=== PATIENT | male | born 1970 | race Caucasian/White ===

== ENCOUNTER 2017-11-12 17:29 | Emergency (ER) | payer MEDICARE, OTHER, SELFPAY ==
[~2017-11-12] VITALS: Ht 167.6 cm; Wt 81.8 kg
[~2017-11-12 17:29] MED LIST: LISI20TA PO
[2017-11-12] MEDS ORDERED: ISOS30TA6 PO (17:45)
[2017-11-12] MEDS ORDERED: FAMO20 PO (17:45)
[2017-11-12] MEDS ORDERED: BUME1TAB17 PO (17:45)
[2017-11-12] MEDS ORDERED: SUCR500T PO (17:45)
[2017-11-12] MEDS ORDERED: TRAM50TA4 PO (17:45)
[2017-11-12] MEDS ORDERED: CINA30 PO (17:45)
[2017-11-12] MEDS ORDERED: FURO80 PO (17:45)
[2017-11-12 19:56] LABS: BASOPHILS % (AUTO) 0.9 % (0.0-2.0); EOSINOPHILS % (AUTO) 3.3 % (1.0-6.0); HEMATOCRIT 23.3 % (41-53); HEMOGLOBIN 7.5 g/dL (13.5-17.5); LYMPHOCYTES # (AUTO) 0.7 K/uL (1.0-4.8); LYMPHOCYTES % (AUTO) 10.3 % (22.0-44.0); MEAN CORPUSCULAR HEMOGLOBIN 27.9 pg (26.0-34.0); MEAN CORPUSCULAR HGB CONC 32.1 G/dL (31.0-37.0); MEAN CORPUSCULAR VOLUME 87 fL (80-100); MONOCYTES # (AUTO) 1.1 K/uL (0.1-1.0); MONOCYTES % (AUTO) 16.5 % (2.0-9.0); NEUTROPHILS # (AUTO) 4.6 K/uL (1.8-7.7); PLATELET COUNT (AUTO) 169 K/uL (150-450); RED BLOOD CELL COUNT(AUTO) 2.68 MIL/uL (4.50-5.90); RED CELL DISTRIBUTION WIDTH 16.6 % (11.5-14.5)
[2017-11-12 20:07] LABS: CALCIUM, TOTAL 8.2 mg/dL (8.8-10.5); CREATININE 7.8 mg/dL (0.60-1.30); POTASSIUM 5.1 mmol/L (3.5-5.1)
[2017-11-12 20:13] LABS: ALBUMIN 2.5 g/dL (3.4-5.0); TOTAL PROTEIN, SERUM 6.4 g/dL (6.4-8.2)
[2017-11-12] MEDS ORDERED: HYDROmorphone 2 MG/ML SYRINGE IVP ONE (20:30)
[2017-11-12 21:24] VITALS: BP 118/83
== END 2017-11-12 21:56 | disposition home or self-care (01) ==
LOC: EMS 17:30
DX: L89.519 Pressure ulcer of right ankle, unspecified stage (principal); F17.210 Nicotine dependence, cigarettes, uncomplicated; I12.0 Hypertensive chronic kidney disease with stage 5 chronic kidney disease or end stage renal disease; N18.6 End stage renal disease; F15.90 Other stimulant use, unspecified, uncomplicated; Z99.2 Dependence on renal dialysis
CPT/HCPCS: 36415; 71045; 80053; 83605; 83690; 83880; 84484; 85025; 87040; 93005; 96374; 99285; J1170

== ENCOUNTER 2017-11-16 18:43 | Emergency (ER) | payer MEDICARE, MEDICAID ==
[~2017-11-16] VITALS: Ht 172.7 cm; Wt 81.8 kg
[~2017-11-16 18:43] MED LIST changes: +BUME1TAB17 PO; +CINA30 PO; +FAMO20 PO; +FURO80 PO; +ISOS30TA6 PO; -LISI20TA PO; +SUCR500T PO; +TRAM50TA4 PO
[2017-11-16 20:31] LABS: EOSINOPHILS % (AUTO) 3.3 % (1.0-6.0); HEMOGLOBIN 7.2 g/dL (13.5-17.5); LYMPHOCYTES # (AUTO) 0.9 K/uL (1.0-4.8); LYMPHOCYTES % (AUTO) 13.1 % (22.0-44.0); MEAN CORPUSCULAR HEMOGLOBIN 27.9 pg (26.0-34.0); MEAN CORPUSCULAR HGB CONC 32.5 G/dL (31.0-37.0); MEAN CORPUSCULAR VOLUME 86 fL (80-100); MONOCYTES # (AUTO) 0.8 K/uL (0.1-1.0); MONOCYTES % (AUTO) 11.6 % (2.0-9.0); NEUTROPHILS # (AUTO) 4.9 K/uL (1.8-7.7); PLATELET COUNT (AUTO) 190 K/uL (150-450); RED BLOOD CELL COUNT(AUTO) 2.57 MIL/uL (4.50-5.90)
[2017-11-16 20:40] LABS: ANION GAP 9 mmol/L (8-16); CALCIUM, TOTAL 7.8 mg/dL (8.8-10.5); CARBON DIOXIDE 32 mmol/L (22-29); CHLORIDE 96 mmol/L (98-107); CREATININE 6.08 mg/dL (0.60-1.30); GLOMERULAR FILTR. RATE CALC 10 mL/min (>60); GLUCOSE,RANDOM 89 mg/dL (70-110); POTASSIUM 4.5 mmol/L (3.5-5.1); SODIUM SERUM 137 mmol/L (136-145); UREA NITROGEN, BLOOD 40 mg/dL (7-18)
[2017-11-16 20:46] LABS: ALANINE AMINOTRANSFERASE 14 U/L (12-78); ALBUMIN 2.5 g/dL (3.4-5.0); ALKALINE PHOSPHATASE 367 U/L (46-116); ASPARTATE AMINOTRANSFERASE 23 U/L (15-37); BILIRUBIN,TOTAL 1.1 mg/dL (0.1-1.0); TOTAL PROTEIN, SERUM 6.4 g/dL (6.4-8.2)
[2017-11-16 21:49] VITALS: BP 122/75
== END 2017-11-16 23:07 | disposition left against medical advice (07) ==
LOC: EMS 18:44
DX: L89.519 Pressure ulcer of right ankle, unspecified stage (principal); L03.115 Cellulitis of right lower limb; I12.0 Hypertensive chronic kidney disease with stage 5 chronic kidney disease or end stage renal disease; N18.6 End stage renal disease; F15.90 Other stimulant use, unspecified, uncomplicated; F17.210 Nicotine dependence, cigarettes, uncomplicated; Z76.0 Encounter for issue of repeat prescription; Z88.5 Allergy status to narcotic agent; Z99.2 Dependence on renal dialysis
CPT/HCPCS: 36415; 80053; 85025; 99284; G0480

== ENCOUNTER 2019-01-11 20:24 | Emergency (ER) | payer MEDICARE, OTHER ==
[~2019-01-11] VITALS: Ht 167.6 cm; Wt 84.1 kg
[~2019-01-11 20:24] MED LIST changes: -BUME1TAB17 PO; +BUME1TAB34 PO
[2019-01-11 21:11] VITALS: BP 140/83
[2019-01-11] MEDS ORDERED: KETOROLAC TROMETHAMINE 30 MG/ML VIAL IM ONE (22:15)
== END 2019-01-11 22:46 | disposition home or self-care (01) ==
LOC: EMS 20:25
DX: M25.511 Pain in right shoulder (principal); I12.0 Hypertensive chronic kidney disease with stage 5 chronic kidney disease or end stage renal disease; N18.6 End stage renal disease; F17.210 Nicotine dependence, cigarettes, uncomplicated; F15.90 Other stimulant use, unspecified, uncomplicated; Z99.2 Dependence on renal dialysis; Z88.5 Allergy status to narcotic agent; Z88.6 Allergy status to analgesic agent; Z79.899 Other long term (current) drug therapy
CPT/HCPCS: 73030; 96372; 99283; J1885